=== PATIENT | female | born 1990 | race American Indian/Alaskan Native ===

== ENCOUNTER 2019-12-02 10:41 | Outpatient (CLI) | payer OTHER ==
[~2019-12-02 10:41] MED LIST: PRENATAL1 TAB
== END 2019-12-03 20:42 | disposition home or self-care (01) ==
LOC: OBS/DEL 10:41
DX: O26.893 Other specified pregnancy related conditions, third trimester (principal); N20.0 Calculus of kidney; O35.8XX0 Maternal care for other (suspected) fetal abnormality and damage, not applicable or unspecified

== ENCOUNTER 2019-12-15 00:52 | Outpatient (CLI) | payer OTHER | END 2019-12-15 18:15 | disposition home or self-care (01) | LOC: OBS/DEL 00:52 | DX: O26.893 Other specified pregnancy related conditions, third trimester (principal); Z04.3 Encounter for examination and observation following other accident; O23.43 Unspecified infection of urinary tract in pregnancy, third trimester; W18.09XA Striking against other object with subsequent fall, initial encounter; Y93.89 Activity, other specified; Y92.098 Other place in other non-institutional residence as the place of occurrence of the external cause; Y99.8 Other external cause status ==

== ENCOUNTER 2019-12-30 13:30 | Inpatient (IN) | payer OTHER ==
[~2019-12-30] VITALS: Ht 165.1 cm; Wt 91.6 kg
== END 2020-01-21 18:41 | disposition home or self-care (01) | DRG 788 ==
LOC: LDR 01-18 11:57 → OB/GYN 01-18 13:30
PROVIDERS: ADMIT Obstetrics & Gynecology
PROC: 4A1HXCZ Monitoring of Products of Conception, Cardiac Rate, External Approach (ICD-10-PCS; 2020-01-18)
PROC: 10D00Z1 Extraction of Products of Conception, Low, Open Approach (ICD-10-PCS; principal; 2020-01-18 16:00)
DX: O82 Encounter for cesarean delivery without indication (principal); Z3A.39 39 weeks gestation of pregnancy; Z37.0 Single live birth